=== PATIENT | male | born 1960 | race Two or more races ===

== ENCOUNTER 2020-12-23 11:09 | Emergency (ER) | payer OTHER, SELFPAY ==
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
[2020-12-23 11:14] VITALS: BP 180/102; PULSE 83; RESP 20; TEMP 37.1; O2SAT 95; BMI 25.3
[2020-12-23] MEDS: Acetaminophen 325 MG TABLET 650 MG PO (12:26)
[2020-12-23] MEDS: Cyclobenzaprine HCl 5 MG TABLET PO (12:26)
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
== END 2020-12-23 15:58 | disposition home or self-care (01) ==
PROVIDERS: Emergency Provider Internal Medicine
DX: S29.9XXA Unspecified injury of thorax, initial encounter (principal); S79.912A Unspecified injury of left hip, initial encounter; M25.552 Pain in left hip; M54.5 Low back pain; M54.2 Cervicalgia; G44.309 Post-traumatic headache, unspecified, not intractable; Y93.55 Activity, bike riding; Y92.410 Unspecified street and highway as the place of occurrence of the external cause; Y99.9 Unspecified external cause status; X58.XXXA Exposure to other specified factors, initial encounter; Y93.9 Activity, unspecified; Y92.9 Unspecified place or not applicable; Z79.899 Other long term (current) drug therapy
CPT/HCPCS: 70450; 72100; 72125; 73502; 99283; 99284